=== PATIENT | female | born 1970 | race Caucasian/White ===

== ENCOUNTER 2016-08-01 17:50 | Emergency (ER) | payer OTHER ==
[~2016-08-01] VITALS: Ht 167.6 cm; Wt 84.2 kg
[~2016-08-01 17:50] MED LIST: OXYC1TAB3 PO
[2016-08-01 18:01] VITALS: TEMP 36.9; Ht 167.6 cm; Wt 84.2 kg
[2016-08-01] MEDS ORDERED: SODIUM CHLORIDE 0.9% 1000ML 1,000 ML IV STA (18:41)
[2016-08-01] MEDS ORDERED: ACETAMINOPHEN 500 MG TAB PO STA (18:41)
[2016-08-01] MEDS ORDERED: KETOROLAC TROMETHAMINE 30 MG/ML VIAL IV STA (18:41)
[2016-08-01] MEDS ORDERED: HYDROmorphone INJ 1 MG/ML SYR IV STA ×2 (18:41)
--- NOTE | 2016-08-01 18:44 | EMERGENCY ROOM VISIT NOTE ---
History Report prepared by Lisy: Alejandro Muniz Under the Supervision of: Dr. Aisha Levin M.D. First contact with patient: 18:19 Chief Complaint: ABDOMINAL PAIN Stated Complaint: ABD PAIN Nursing Triage Summary: see triage note. History of Present Illness The patient is a 46 year old female who presents to the Emergency Room with complaints of intermittent right lower quadrant pain since yesterday. The pain is sharp. The patient also had a small amount of brown vaginal discharge. The patient had 4 tabs of Motrin 800 mg today. She was nauseous earlier, which she believes was due to taking the Motrin on an empty stomach. The patient has a history of ovarian cysts. She had one rupture that in the past that caused similar pain pain. The patient had a partial hysterectomy in March 2015 s/p fibroids. She also has a history of appendectomy, cholecystectomy, and section. Source of History: patient Onset: yesterday Position: abdomen (RLQ) Quality: sharp Timing: intermittent Note: Positive for vaginal discharge. Review of Systems See HPI for pertinent positives & negatives. A total of 10 systems reviewed and were otherwise negative. Past Medical & Surgical Medical Problems: (1) delivery delivered (2) Ovarian cyst Surgical Problems: (1) S/P appy (2) S/P cholecystectomy (3) S/P partial hysterectomy Family History Diabetes mellitus FH: cancer FH: heart disease Hypertension Social History Smoking Status: Never Smoker Alcohol Use: none Drug Use: none Marital Status: Housing Status: lives with family Occupation Status: unemployed Current/Historical Medications Scheduled Naproxen (Aleve), 220 MG PO DAILY Scheduled PRN Ibuprofen Tab (Motrin), 800 MG PO QID PRN for Pain Oxycodone Immediate Rel Tab (Roxicodone Ir), 1-2 TAB PO Q4H PRN for Severe Pain Allergies Coded Allergies: Cefuroxime (Verified Allergy, Unknown, hives, 08/01/16) Hydrocodone (Verified Allergy, Unknown, hives, 08/01/16) Physical Exam Vital Signs Date Time Temp Pulse Resp B/P Pulse Ox O2 Delivery O2 Flow Rate FiO2 08/01/16 21:09 84 18 131/70 99 Room Air 08/01/16 18:01 36.9 81 16 109/64 99 Room Air Physical Exam CONSTITUTIONAL: Moderate painful distress. HEENT: No icterus, moist mucous membranes NECK: No meningismus, trachea is midline. CARDIOVASCULAR: Regular rate, normal perfusion RESPIRATORY: Unlabored breathing. Clear to auscultation. GASTROINTESTINAL: Moderate to severe right lower quadrant tenderness. GENITOURINARY: No flank tenderness MUSCULOSKELETAL: Full range of motion NEUROLOGIC: No acute gross focal deficits. PSYCHIATRIC: Normal affect SKIN: Normal for ethnicity. Medical Decision & Procedures ER Provider Diagnostic Interpretation: US and CT results as stated below per my review and radiologist interpretation. ULTRASOUND OF THE PELVIS CLINICAL HISTORY: Pelvic pain. COMPARISON STUDY: Pelvic ultrasound dated 01/15/2015. TECHNIQUE: Real-time, grayscale, and color flow sonography of the pelvis is performed both transabdominally and endovaginally. Images are reviewed in the transverse and longitudinal planes. FINDINGS: Uterus: The uterus is surgically absent. Ovaries: The ovaries are normal in size and morphology. The right ovary measures 2.0 x 1.4 x 2.1 cm and the left ovary measures 3.0 x 1.3 x 1.4 cm. Small follicles are noted bilaterally. Normal Doppler waveforms are shown within both ovaries. The left ovary was only seen on the transabdominal examination. Pelvis: There is no free fluid in the cul-de-sac. No concerning adnexal lesion is seen. IMPRESSION: 1. No acute sonographic abnormality is identified in the pelvis noting status post hysterectomy. 2. The ovaries are normal in appearance. Electronically signed by: Ankit Krishna M.D. 08/01/2016 8:[address] SCAN OF THE ABDOMEN AND PELVIS WITH IV CONTRAST CLINICAL HISTORY: Right lower quadrant abdominal pain. COMPARISON STUDY: Pelvic ultrasound dated 08/01/2016. TECHNIQUE: Following the IV administration of 120 cc of Optiray 320, CT scan of the abdomen and pelvis is performed from the lung bases to the proximal femora. Images are reviewed in the axial, sagittal, and coronal planes. IV contrast was administered without complication. Automated dose control exposure was utilized. CT DOSE: 489.55 mGy.cm FINDINGS: Lung bases: The heart is normal in size and without pericardial effusion. The lung bases are clear noting dependent atelectasis. Liver: The contrast-enhanced liver is normal in size, contour, and attenuation. There is mild intra and extrahepatic biliary ductal dilatation, likely related to previous cholecystectomy. The hepatic veins and portal veins are patent. Gallbladder: Surgically absent noting clips in the gallbladder fossa. Spleen: Normal in size and attenuation. Pancreas: Unremarkable. Adrenal glands: Unremarkable. Kidneys: The contrast enhanced kidneys are normal in size and without hydronephrosis. The kidneys enhance symmetrically. Abdominal vasculature: The abdominal aorta is normal in course and caliber. Bowel: The small bowel and colon are normal in course and caliber. There is mild colonic diverticulosis without CT evidence of acute diverticulitis. The appendix is well-visualized and normal. Peritoneum: There is no intraperitoneal free air or abdominal ascites. There is a small fat-containing umbilical hernia. Lymphadenopathy: None. Pelvic viscera: The bladder is normal as visualized. The uterus is surgically absent. No adnexal lesion is seen. Skeletal structures: No lytic or blastic lesions are seen. Sclerotic change is noted in the sacroiliac joints. IMPRESSION: 1. There are no acute infectious or inflammatory findings in the abdomen or pelvis. 2. Mild colonic diverticulosis without CT evidence of acute diverticulitis. Electronically signed by: Ankit Krishna M.D. 08/01/2016 10:01 PM Laboratory Results 08/01/16 19:10 Red Blood Count 4.17, Mean Corpuscular Volume 96.2, Mean Corpuscular Hemoglobin 33.3, Mean Corpuscular Hemoglobin Concent 34.7, Mean Platelet Volume 11.0, Neutrophils (%) (Auto) 51.6, Lymphocytes (%) (Auto) 38.7, Monocytes (%) (Auto) 7.6, Eosinophils (%) (Auto) 1.6, Basophils (%) (Auto) 0.4, Neutrophils # (Auto) 3.96, Lymphocytes # (Auto) 2.97, Monocytes # (Auto) 0.58, Eosinophils # (Auto) 0.12, Basophils # (Auto) 0.03 08/01/16 19:10 Test 08/01/16 19:10 08/01/16 19:37 White Blood Count 7.67 K/uL (4.8-10.8) Red Blood Count 4.17 M/uL (4.2-5.4) Hemoglobin 13.9 g/dL (12.0-16.0) Hematocrit 40.1 % (37-47) Mean Corpuscular Volume 96.2 fL (80-100) Mean Corpuscular Hemoglobin 33.3 pg (25-34) Mean Corpuscular Hemoglobin Concent 34.7 g/dl (32-36) Platelet Count 268 K/uL (130-400) Mean Platelet Volume 11.0 fL (7.4-10.4) Neutrophils (%) (Auto) 51.6 % Lymphocytes (%) (Auto) 38.7 % Monocytes (%) (Auto) 7.6 % Eosinophils (%) (Auto) 1.6 % Basophils (%) (Auto) 0.4 % Neutrophils # (Auto) 3.96 K/uL (1.4-6.5) Lymphocytes # (Auto) 2.97 K/uL (1.2-3.4) Monocytes # (Auto) 0.58 K/uL (0.11-0.59) Eosinophils # (Auto) 0.12 K/uL (0-0.5) Basophils # (Auto) 0.03 K/uL (0-0.2) RDW Standard Deviation 44.0 fL (36.4-46.3) RDW Coefficient of Variation 12.8 % (11.5-14.5) Immature Granulocyte % (Auto) 0.1 % Immature Granulocyte # (Auto) 0.01 K/uL (0.00-0.02) Anion Gap 10.0 mmol/L (3-11) Est Creatinine Clear Calc Drug Dose 79.2 ml/min Estimated GFR () 80.7 Estimated GFR (Non- 69.7 BUN/Creatinine Ratio 17.3 (10-20) Calcium Level 8.9 mg/dl (8.5-10.1) Urine Color YELLOW Urine Appearance CLOUDY (CLEAR) Urine pH 7.0 (4.5-7.5) Urine Specific [place] 1.029 (1.000-1.030) Urine Protein NEG (NEG) Urine Glucose (UA) NEG (NEG) Urine Ketones NEG (NEG) Urine Occult Blood NEG (NEG) Urine Nitrite NEG (NEG) Urine Bilirubin NEG (NEG) Urine Urobilinogen NEG (NEG) Urine Leukocyte Esterase NEG (NEG) Urine WBC (Auto) 1-5 /hpf (0-5) Urine RBC (Auto) 5-10 /hpf (0-4) Urine Hyaline Casts (Auto) 1-5 /lpf (0-5) Urine Epithelial Cells (Auto) >30 /lpf (0-5) Urine Bacteria (Auto) 1+ (NEG) Labs reviewed by ED physician. Medications Administered Medications (Trade) Dose Ordered Sig/Doug Route Start Time Stop Time Status Last Admin Dose Admin Acetaminophen 1000 mg 1,000 mg NOW STAT PO 08/01/16 18:41 08/01/16 18:43 DC 08/01/16 19:06 1,000 MG Sodium Chloride (Nss 1000ml) 1,000 ml @ 0 mls/hr Q0M STAT IV 08/01/16 18:41 08/01/16 18:43 DC 08/01/16 19:06 0 MLS/HR Ketorolac Tromethamine (Toradol Inj) 30 mg NOW STAT IV 08/01/16 18:41 08/01/16 18:43 DC 08/01/16 19:05 30 MG Hydromorphone HCl (Dilaudid Inj) 1 mg PRN STAT IV 08/01/16 18:41 08/01/16 18:43 DC 08/01/16 19:05 1 MG Hydromorphone HCl (Dilaudid Inj) 1 mg PRN STAT IV 08/01/16 18:41 08/01/16 18:43 DC 08/01/16 21:10 1 MG Ondansetron HCl (Zofran Inj) 4 mg Q4H PRN IV 08/01/16 18:45 08/31/16 18:44 08/01/16 19:05 4 MG ED Course 183: Past medical records reviewed. The patient was evaluated in room C6. A complete history and physical examination was performed. 1841: Dilaudid 1 mg IV, Toradol 30 mg IV, NSS 1000 ml wide open, Tylenol 1000 mg PO. 1845: Zofran 4 mg IV. 0: Updated the patient. 2249: Reevaluated the patient. Explained everything to her. She verbalized understanding and agreement of the treatment plan. The patient is ready for discharge. Medical Decision Differential diagnosis includes ovarian cyst, obstruction. 46-year-old with history of ovarian cysts and previous rupture presents to the emergency room with severe right lower quadrant pain as well as episode of dark bloody discharge now resolved. She was in moderate to severe distress with significant right lower quadrant tenderness and previous history of abdominal surgery. Differential diagnosis was discussed and decision made to obtain both ultrasound as well as CT. Ultrasound did not show a clear diagnosis and therefore CT obtained subsequently negative. Therefore, it appears the most likely diagnosis was a ruptured ovarian cyst. She was given Percocet and Zofran home packs. Impression Primary Impression: Ruptured ovarian cyst Scribe Attestation The scribe's documentation has been prepared under my direction and personally reviewed by me in its entirety. I confirm that the note above accurately reflects all work, treatment, procedures, and medical decision making performed by me. Departure Information Dispostion Home / Self-Care Referrals No Doctor, Assigned (PCP) Forms Call Back Authorization, HOME CARE DOCUMENTATION FORM, IMPORTANT VISIT INFORMATION Patient Instructions A Signature Page, Abdominal Pain - [facility], [facility]
[2016-08-01] MEDS ORDERED: ONDANSETRON INJ 2 MG/ML 2 ML VIAL IV PRN (18:45)
[2016-08-01 19:32] LABS: BASO % 0.4 %; BASO ABS # 0.03 K/uL (0-0.2); COMPLETE YES; EOS % 1.6 %; HEMATOCRIT 40.1 % (37-47); IG% 0.1 %; LYMPH % 38.7 %; LYMPH ABS # 2.97 K/uL (1.2-3.4); MEAN CELL VOLUME 96.2 fL (80-100); MEAN CORPUSCULAR HEMOGLOBIN 33.3 pg (25-34); MEAN CORPUSCULAR HGB CONC 34.7 g/dl (32-36); MONO % 7.6 %; NEUT % 51.6 %; PLATELET COUNT 268 K/uL (130-400); RED BLOOD COUNT 4.17 M/uL (4.2-5.4); WHITE BLOOD COUNT 7.67 K/uL (4.8-10.8)
[2016-08-01] MEDS ORDERED: OPTIRAY 320 IV PRN (19:45)
[2016-08-01 19:57] LABS: BUN/CREATININE RATIO 17.3 (10-20); CALCIUM 8.9 mg/dl (8.5-10.1); CREATININE 0.98 mg/dl (0.60-1.20)
[2016-08-01 20:02] LABS: POTASSIUM 4.2 mmol/L (3.5-5.1)
[2016-08-01 20:13] LABS: URINE APPEARANCE CLOUDY (CLEAR); URINE BILIRUBIN NEG (NEG); URINE COLOR YELLOW; URINE EPITHELIAL CELL AUTO >30 /lpf (0-5); URINE NITRITE NEG (NEG); URINE SPECIFIC GRAVITY 1.029 (1.000-1.030); UROBILINOGEN NEG (NEG); ZZUR CULT IF INDIC CLEAN CATCH YES
[2016-08-01 20:24] LABS: MANUAL MICROSCOPIC REQUIRED? NO; REVIEW REQ? NO
--- NOTE | 2016-08-01 20:39 | DIAGNOSTIC IMAGING REPORT ---
ULTRASOUND OF THE PELVIS CLINICAL HISTORY: Pelvic pain. COMPARISON STUDY: Pelvic ultrasound dated 01/15/2015. TECHNIQUE: Real-time, grayscale, and color flow sonography of the pelvis is performed both transabdominally and endovaginally. Images are reviewed in the transverse and longitudinal planes. FINDINGS: Uterus: The uterus is surgically absent. Ovaries: The ovaries are normal in size and morphology. The right ovary measures 2.0 x 1.4 x 2.1 cm and the left ovary measures 3.0 x 1.3 x 1.4 cm. Small follicles are noted bilaterally. Normal Doppler waveforms are shown within both ovaries. The left ovary was only seen on the transabdominal examination. Pelvis: There is no free fluid in the cul-de-sac. No concerning adnexal lesion is seen. IMPRESSION: 1. No acute sonographic abnormality is identified in the pelvis noting status post hysterectomy. 2. The ovaries are normal in appearance. Electronically signed by: Ankit Krishna M.D. 08/01/2016 8:38 PM
[2016-08-01] MEDS ORDERED: IBUP-1451 PO (21:02)
[2016-08-01] MEDS ORDERED: NAPR1TAB9 PO (21:03)
[2016-08-01] MEDS ORDERED: HYDROmorphone INJ 1 MG/ML SYR ONE (21:06)
--- NOTE | 2016-08-01 22:02 | DIAGNOSTIC IMAGING REPORT ---
CT SCAN OF THE ABDOMEN AND PELVIS WITH IV CONTRAST CLINICAL HISTORY: Right lower quadrant abdominal pain. COMPARISON STUDY: Pelvic ultrasound dated 08/01/2016. TECHNIQUE: Following the IV administration of 120 cc of Optiray 320, CT scan of the abdomen and pelvis is performed from the lung bases to the proximal femora. Images are reviewed in the axial, sagittal, and coronal planes. IV contrast was administered without complication. Automated dose control exposure was utilized. CT DOSE: 489.55 mGy.cm FINDINGS: Lung bases: The heart is normal in size and without pericardial effusion. The lung bases are clear noting dependent atelectasis. Liver: The contrast-enhanced liver is normal in size, contour, and attenuation. There is mild intra and extrahepatic biliary ductal dilatation, likely related to previous cholecystectomy. The hepatic veins and portal veins are patent. Gallbladder: Surgically absent noting clips in the gallbladder fossa. Spleen: Normal in size and attenuation. Pancreas: Unremarkable. Adrenal glands: Unremarkable. Kidneys: The contrast enhanced kidneys are normal in size and without hydronephrosis. The kidneys enhance symmetrically. Abdominal vasculature: The abdominal aorta is normal in course and caliber. Bowel: The small bowel and colon are normal in course and caliber. There is mild colonic diverticulosis without CT evidence of acute diverticulitis. The appendix is well-visualized and normal. Peritoneum: There is no intraperitoneal free air or abdominal ascites. There is a small fat-containing umbilical hernia. Lymphadenopathy: None. Pelvic viscera: The bladder is normal as visualized. The uterus is surgically absent. No adnexal lesion is seen. Skeletal structures: No lytic or blastic lesions are seen. Sclerotic change is noted in the sacroiliac joints. IMPRESSION: 1. There are no acute infectious or inflammatory findings in the abdomen or pelvis. 2. Mild colonic diverticulosis without CT evidence of acute diverticulitis. Electronically signed by: Ankit Krishna M.D. 08/01/2016 10:01 PM
[2016-08-01] MEDS ORDERED: ONDANSETRON HOME PACK 4MG OD TAB PO ONE (22:45)
[2016-08-01] MEDS ORDERED: PERCOCET HOME PACK PO ONE (22:45)
[2016-08-01 23:09] VITALS: BP 110/70; PULSE 80; O2SAT 98
== END 2016-08-01 23:10 | disposition home or self-care (01) ==
LOC: C.EDB 17:53 → C.EDC 23:10
DX: N83.209 Unspecified ovarian cyst, unspecified side (principal); Z83.3 Family history of diabetes mellitus; Z80.9 Family history of malignant neoplasm, unspecified; Z82.49 Family history of ischemic heart disease and other diseases of the circulatory system; Z79.899 Other long term (current) drug therapy